=== PATIENT | male | born 1970 | race Caucasian/White ===

== ENCOUNTER → 2022-05-29 08:02 | Outpatient (BNVA) | payer OTHER, SELFPAY | PROVIDERS: Visit Provider Surgery | DX: K92.1 Melena (principal) | CPT/HCPCS: 99203 ==

== ENCOUNTER 2022-07-01 09:53 | Day surgery (SDC) | payer OTHER, SELFPAY ==
[2022-06-28 14:14] VITALS: BMI 32.3
[2022-07-01 10:35] VITALS: BP 135/89; PULSE 65; RESP 18; TEMP 36.2; O2SAT 97
[2022-07-01] MEDS: sodium chloride 0.9% 1,000 ML 30 ML IV (10:44)
--- NOTE | 2022-07-01 12:51 | ANES.PREANE2 ---
Pre-Anesthetic Assessment Height/Weight: Height 1.78 m Weight 102.058 kg Temp Pulse Resp BP Pulse Ox O2 Del Method 97.2 F L 65 18 135/89 97 07/01/22 10:35 07/01/22 10:35 07/01/22 10:35 07/01/22 10:35 07/01/22 10:35 07/01/22 10:35 Preop Diagnosis: Occult blood positive in stool Operation Date: 07/01/22 11:30 Proposed Procedures p Colonoscopy 15527,K92.1(Not Applicable) - Goldy Hampton MD Familial anesthetic complications: None Was Beta Oumar taken within 24 hours: N/A Was Clonidine taken within 24 hours: N/A Last intake: Intake Last Liquid Date 06/30/22 Last Liquid Time 21:00 Last Solid Date 06/29/22 Last Solid Time 22:00 Social No alcohol and No tobacco Exam alert, oriented x 3, clear to auscultation bilaterally and regular rate & rhythm Airway Mallampati: Class II Dentition: other (multiple missing) Pulmonary Chronic Obstructive Pulmonary Disease CV/HEM Hypertension Neuropsych Transient Ischemic Attack Anesthetic Plan ASA status: 3 Anesthesia: MAC Risk of > 500 ml blood loss (7ml/kg in children): No Medications/Allergies Home Medications Medication Instructions Recorded Confirmed Last Taken Type albuterol sulfate 90 mcg/actuation 1 puff inhalation QID 05/29/22 07/01/22 06/29/22 History aerosol inhaler aspirin 81 mg tablet,delayed 81 mg PO DAILY 05/29/22 07/01/22 06/30/22 History release atorvastatin 80 mg tablet 80 mg PO DAILY 05/29/22 07/01/22 06/30/22 History bupropion HCl 150 mg 24 hr tablet, 150 mg PO BID 05/29/22 07/01/22 06/30/22 History extended release clopidogrel 75 mg tablet (Plavix) 75 mg PO DAILY 05/29/22 06/28/22 06/25/22 History lisinopril 20 mg tablet 10 mg PO DAILY 05/29/22 07/01/22 06/30/22 History peg 3350-electrolytes 236 240 ml PO Q10M #4,000 mL 05/29/22 07/01/22 06/30/22 Rx gram-22.74 gram-6.74 gram-5.86 gram solution (Golytely) Allergies Allergy/AdvReac Type Severity Reaction Status Date / Time No Known Allergies Allergy Verified 07/01/22 10:31 Current Medications Generic Name Dose Route Start Last Admin Trade Name Freq PRN Reason Stop Dose Admin Sodium Chloride 1,000 mls @ 30 mls/hr 07/01/22 10:15 07/01/22 10:44 Sodium Chloride 0.9% IV 07/02/22 10:14 30 mls/hr .Q24H DEEP Administration PFSH Anesthesia Social History Smoking and tobacco status: former smoker Data Anesthesia Cardiac Studies: No Data to Display
--- NOTE | 2022-07-01 13:52 | W.PM.OPSFHP ---
Same Day Surgery H&P Indication for Procedure/HPI DATE OF PROCEDURE: July 01, 2022 CHIEF COMPLAINT/INDICATIONFOR SURGICAL PROCEDURE: I am here for colonoscopy PREOP DIAGNOSIS: Occult blood positive in stool PLANNED PROCEDURE: Operation Date: 07/01/22 11:30 Proposed Procedures p Colonoscopy 26743,K92.1(Not Applicable) - Goldy Hampton MD Patient comes today for colonoscopy as was found to have occult blood in stool as he never had a colonoscopy before ROS All systems have been reviewed negative except as for the above or per problem list. Medications/Allergies* Home Medications Medication Instructions Recorded Confirmed Type albuterol sulfate 90 mcg/actuation 1 puff inhalation QID 05/29/22 07/01/22 History aerosol inhaler aspirin 81 mg tablet,delayed 81 mg PO DAILY 05/29/22 07/01/22 History release atorvastatin 80 mg tablet 80 mg PO DAILY 05/29/22 07/01/22 History bupropion HCl 150 mg 24 hr tablet, 150 mg PO BID 05/29/22 07/01/22 History extended release clopidogrel 75 mg tablet (Plavix) 75 mg PO DAILY 05/29/22 06/28/22 History lisinopril 20 mg tablet 10 mg PO DAILY 05/29/22 07/01/22 History Allergies/Adverse Reactions Allergy/AdvReac Type Severity Reaction Status Date / Time No Known Allergies Allergy Verified 07/01/22 13:52 Current Medications: Generic Name Dose Route Start Last Admin Trade Name Freq PRN Reason Stop Dose Admin Sodium Chloride 1,000 mls @ 30 mls/hr 07/01/22 10:15 07/01/22 10:44 Sodium Chloride 0.9% IV 07/02/22 10:14 30 mls/hr .Q24H DEEP Administration Pertinent History/Comorbid Conditions* Social History Smoking and tobacco status: former smoker Pertinent Exam Findings alert, oriented x 3, clear to auscultation bilaterally, regular rate & rhythm and procedure specific exam findings (Abdominal exam nontender nondistended soft) Recommendations Surgery/Procedure today (Colonoscopy with possible biopsy) Coding Level of Care Code Acute Finishing Range Supervisor for Martha Jorge
--- NOTE | 2022-07-01 14:07 | SUR.OPER ---
clip placed in the ascending colon polyp bx site
[2022-07-01 14:17] VITALS: BP 123/72; PULSE 63; RESP 14; TEMP 36.1; O2SAT 96
== END 2022-07-01 15:02 | disposition home or self-care (01) ==
PROVIDERS: PCP Family Medicine; Visit Provider Surgery
PROC: 0DJD8ZZ Inspection of Lower Intestinal Tract, Via Natural or Artificial Opening Endoscopic (ICD-10-PCS; CPT 45378; principal; 2022-07-01 11:30)
DX: R19.5 Other fecal abnormalities (principal); Z79.82 Long term (current) use of aspirin; Z87.891 Personal history of nicotine dependence; D12.2 Benign neoplasm of ascending colon; K62.1 Rectal polyp; K57.30 Diverticulosis of large intestine without perforation or abscess without bleeding; J44.9 Chronic obstructive pulmonary disease, unspecified; I10 Essential (primary) hypertension; Z86.73 Personal history of transient ischemic attack (TIA), and cerebral infarction without residual deficits
CPT/HCPCS: 45385; 88305; J2704; J7030